=== PATIENT | female | born 1990 | race Caucasian/White ===

== ENCOUNTER 2023-03-21 12:32 | Outpatient (RCR) | payer BC, SELFPAY ==
--- NOTE | 2023-03-21 14:44 | PC.NURSE ---
In- 1232 Out- 1415 Reason for visit: History: mother who was delivered with an urgent/emergency primary section due to nonreassuring heart rate on 03/08/23. An induction was scheduled, planned for oligohydramnios, however, it was not started. Mother is a smoker and she was encouraged to seek cessation assistance or decrease as much as possible. She voiced that she takes Adderall. We discussed the importance of continuing her medication with the possibly that it might affect her milk supply. Mother did not deliver at [facility] and doesn't know her QBL, however, she states she did not need to receive a blood transfusion. Mother has started attempting to breastfeed every 2 hours during most of the 24 hour day in the last 24-48 hours. Mother has supplemented with formula and practiced pumping with a Medela pump, although not consistently. Assessment of the breast are nontender, everted, and soft leaking milk. History: girl Tami was born via section at 40 3/7. She is here today appearing alert, appropriate and well nourished. Observations: Reviewed positioning and ear, shoulder, hip alignment, supporting the breast to facilitate a deep latch, asymmetrical latch (off-center), leading with the chin with a big, open, wide gape and body close to mother. Resources used to facilitate learning were used with the tool. Infant latches effectively at the start, then at times pulls back and nurses only on the nipple. When the is latched deeply mother is shown the difference between a non-nutritive suck, the suck swallow ratio, and what a swallow looks and sounds like. Infant at times has a suck swallow ranging from 2:1 - 5:1 with burst of nonnutritive sucking. This is what is visualized on both breast. Mother denies any discomfort with . After on the left breast using cross-cradle positioning the nipple was slightly misshaped. Nipple care reviewed with optimal latch with deep mouthful, good positioning, and encouraging infant to not pull back and latch to the nipple only. Encouraged mother to support her breast with the sandwich hold to facilitate infant latching with more than the nipple. When infant latched to the right breast mother placed the manual pump Haakaa to her left breast to collect milk. Discussed risks and benefits of the tool. Mother collected 25 mls. weight: 6-10.9 Lowest weight: 5 lbs Last weight: 03/19 in the [facility] office 6-15 Pre-feed weight: 3216g 7-1.4 Post-feed weight: 3231g 7-1.9 Plan of Care: Mother plans to continue to stimulate her breast with consistent every two hours with a rest time of 4-5 hours once in 24 hours only if her breast and child do not wake her up. Mother has decided to stimulate her breast to make more milk until day 21 after delivery. We discussed the different feeding options for a full, partial or formula fed. Reviewed good handwashing when or touching the breast/nipples to prevent infection. Follow up plans: Mother led the conversation with her experience and plan to feed her so far and her ability to continue with the plan of attempting to breastfeed with limiting her feedings to 15-20 on each side every two hours as she is able balancing that with self care. She plans to supplement to feed either with pumped breast milk or formula to meet the infants needs for growth, then pump to encourage her milk supply when she has time. Reinforced understanding of milk production, transition of milk, signs of adequate intake, transition of stool, prevention/relief of engorgement and mastitis, responsive watching for feeding cues, the different methods of stimulating infant to breastfeed 2-3 hours after the start of the last feeding, medication information reviewed per [employer] and when to call a provider. Mother was encouraged to call the RN for questions, concerns, clarificati
== END 2023-06-19 23:59 | disposition home or self-care (01) ==
LOC: ANHOBOP 12:32
PROVIDERS: Visit Provider Pediatrics
DX: Z39.1 Encounter for care and examination of lactating mother (principal)
CPT/HCPCS: 99204; G0463